=== PATIENT | female | born 1970 | race African-American/Black ===

== ENCOUNTER 2019-11-28 17:25 | Emergency (ER) | payer MEDICAID ==
[~2019-11-28] VITALS: Ht 162.6 cm; Wt 73.0 kg
--- NOTE | 2019-11-28 17:45 | NUR ---
ED Nurse Note: Pt ambulated to ED from home due to L ankle pain started since yesterday. Pt reports that she fell down the stairs (2 steps) and twisted her left ankle. Pt is AOx4, calm and cooperative to care, VSS, on RA, afebrile on triage.
--- NOTE | 2019-11-28 18:12 | Diagnostic Imaging Report ---
EXAM: XR Left Ankle Complete, 3 or More Views CLINICAL HISTORY: TRAUMA TECHNIQUE: Frontal, lateral and oblique views of the left ankle. COMPARISON: No relevant prior studies available. FINDINGS: Bones/joints: No acute osseous abnormality. No dislocation. Soft tissues: Lateral ankle soft tissue swelling. IMPRESSION: 1. Lateral ankle soft tissue swelling. 2. No acute osseous abnormality. 3. Otherwise unremarkable study.
[2019-11-28] MEDS ORDERED: IBUPROFEN600 M1 ORAL (19:33)
[2019-11-28] MEDS ORDERED: ROBAXIN-500MG ORAL (19:33)
--- NOTE | 2019-11-28 19:33 | Emergency Room Report ---
History of Present Illness General Chief Complaint: Lower Extremity Injury Source: Patient Present Illness HPI 49-year-old female with no significant past medical history here complaining of left calf pain after twisting. Going down the stairs yesterday. Denies any head injury loss of consciousness. Is ambulating to ED with a cane. Rates the pain in ankle 7 out of 10 with radiation to left calf and reports that "something popped.". Denies any tingling or numbness. Neurovascularly intact. Has full range of motion with pain elicited upon flexion and extension. Has taken Advil for pain relief. Denies chest pain, shortness of breath, headache or dizziness. Denies any other injuries. Allergies: Coded Allergies: PENICILLINS (Verified Allergy, Unknown, 11/28/19) COVID-19 Screening Contact w/high risk pt: No Experienced COVID-19 symptoms?: No COVID-19 Testing performed [employer]OR: Yes COVID-19 Screening: Negative COVID-19 COVID-19 Testing Source: [facility] 3 months ago. Patient History Past Medical History: see triage record Past Surgical History: none Pertinent Family History: none Now: No Immunizations: UTD Reviewed Nursing Documentation: PMH: Agreed; PSxH: Agreed Nursing Documentation-PMH Past Medical History: No Stated History Review of Systems All Other Systems: negative except mentioned in HPI Physical Exam Vital Signs Date Time Temp Pulse Resp B/P (MAP) Pulse Ox O2 Delivery O2 Flow Rate FiO2 11/28/19 17:32 98.4 78 16 117/66 (83) 97 Room Air Sp02 EP Interpretation: reviewed, normal General Appearance: no apparent distress, alert, GCS 15, non-toxic Head: normocephalic, atraumatic Eyes: bilateral eye normal inspection, bilateral eye PERRL ENT: hearing grossly normal, normal pharynx, no angioedema, normal voice Neck: full range of motion, supple, no meningismus, no bony tend, supple/symm/no masses Respiratory: chest non-tender, lungs clear, normal breath sounds, no rhonchi, no respiratory distress, no retraction, no accessory muscle use, no wheezing, speaking full sentences Cardiovascular #1: regular rate, rhythm, no edema, no murmur Cardiovascular #2: 2+ dorsalis pedis (R), 2+ dorsalis pedis (L) Gastrointestinal: normal bowel sounds, non tender, soft, non-distended, no guarding, no rebound Rectal: deferred Genitourinary: no CVA tenderness Musculoskeletal: back normal, no calf tenderness, pelvis stable, Fiordaliza's Sign negative, non-tender, swelling - Left lateral malleolus, other - Is neurovascularly intact Neurologic: alert, motor strength/tone normal, oriented x3, sensory intact, responsive, speech normal Psychiatric: judgement/insight normal, memory normal, mood/affect normal, no suicidal/homicidal ideation Reflexes: 2+ ankle (R), 2+ ankle (L) Skin: no rash Lymphatic: no adenopathy Procedures Splinting Splinting : Consent: Verbal Location: Left ankle Pre-Made Type: DANK wrap Pre-Proc Neuro Vasc Exam: normal Post-Proc Neuro Vasc Exam: normal Patient Tolerated: Well Complications: None Medical Decision Making PA Attestation ALL Diagnosis and treatment plan reviewed and discussed with my supervising physician Dr. Batres Diagnostic Impression: Primary Impression: Ankle sprain ER Course 49-year-old female with no significant past medical history here complaining of left calf pain after twisting. Going down the stairs yesterday. Denies any head injury loss of consciousness. Is ambulating to ED with a cane. Rates the pain in ankle 7 out of 10 with radiation to left calf and reports that "something popped.". Denies any tingling or numbness. Neurovascularly intact. Has full range of motion with pain elicited upon flexion and extension. Has taken Advil for pain relief. Denies chest pain, shortness of breath, headache or dizziness. Denies any other injuries. Ddx considered but are not limited to: ankle sprain, ankle strain, ankle fracture, ankle contusion Vital signs: are WNL, pt. is afebrile H&PE are most consistent with: Left ankle sprain ORDERS: ankle x-ray, venous duplex ultrasound left lower extremity, Robaxin, Motrin ED INTERVENTIONS: Dank wrap, Toradol IM, Robaxin p.o. DISCHARGE: At this time pt. is stable for d/c to home. Will provide printed patient care instructions, and any necessary prescriptions. Care plan and follow up instructions have been discussed with the patient prior to discharge. Take medication as directed, follow-up with spine specialist, if worsening symptoms return to the emergency room Other X-Ray Diagnostic Results Other X-Ray Diagnostic Results : X-Ray ordered: Left ankle # of Views/Limited Vs Complete: 3 View Indication: Pain EP Interpretation: Yes PA Xray: Interpretation reviewed, by supervising MD, and agrees with findings. Interpretation: no dislocation, no fractures Impression: No acute disease Electronically Signed by: Ashley ESQUEDA Scrmaurizio Text FINDINGS: Bones/joints: No acute osseous abnormality. No dislocation. Soft tissues: Lateral ankle soft tissue swelling. IMPRESSION: 1. Lateral ankle soft tissue swelling. 2. No acute osseous abnormality. 3. Otherwise unremarkable study. CT/MRI/US Diagnostic Results CT/MRI/US Diagnostic Results : Imaging Test Ordered: Left venous duplex ultrasound Impression COMPARISON: No relevant prior studies available. FINDINGS: Right deep veins: Unremarkable. No DVT in the right common femoral, femoral, proximal deep femoral or popliteal veins. The veins demonstrate normal color flow, are normally compressible, with normal phasic flow and/or augmentation response. Right superficial veins: Unremarkable. No thrombus in the visualized right great saphenous vein. Left deep veins: Unremarkable. No DVT in the left common femoral, femoral, proximal deep femoral or popliteal veins. The veins demonstrate normal color flow, are normally compressible, with normal phasic flow and/or augmentation res ponse. Left superficial veins: Unremarkable. No thrombus in the visualized left great saphenous vein. Soft tissues: No acute findings. No popliteal cyst. IMPRESSION: No DVT. Last Vital Signs Date Time Temp Pulse Resp B/P (MAP) Pulse Ox O2 Delivery O2 Flow Rate FiO2 11/28/19 17:32 98.4 78 16 117/66 (83) 97 Room Air Disposition: HOME, SELF-CARE Condition: Stable Scripts Ibuprofen* (MOTRIN*) 600 Mg Tablet 600 MG ORAL Q6H PRN for For Pain, #30 TAB 0 Refills Prov: Ashley Boykin 11/28/19 Methocarbamol* (ROBAXIN-500*) 500 Mg Tablet 500 MG ORAL TID PRN for For Pain, #15 TAB 0 Refills Prov: Ashley Boykin 11/28/19 Referrals: [facility] (PCP) Patient Instructions: Ankle Sprain Additional Instructions: Take medication as directed, follow with primary care provider and spine specialist, if worsening symptoms return to the emergency room Ashley Boykin Nov 28, 2019 19:33
[2019-11-28] MEDS ORDERED: Ketorolac 30mg Inj IM ONE (19:45)
[2019-11-28] MEDS ORDERED: Methocarbamol 750mg tab ORAL ONE (19:45)
--- NOTE | 2019-11-28 19:46 | Diagnostic Imaging Report ---
EXAM: US Duplex Bilateral Lower Extremities Veins CLINICAL HISTORY: DVT TECHNIQUE: Real-time duplex ultrasound scan of the bilateral lower extremity veins integrating B-mode two-dimensional vascular structure, Doppler spectral analysis, color flow Doppler imaging and compression. COMPARISON: No relevant prior studies available. FINDINGS: Right deep veins: Unremarkable. No DVT in the right common femoral, femoral, proximal deep femoral or popliteal veins. The veins demonstrate normal color flow, are normally compressible, with normal phasic flow and/or augmentation response. Right superficial veins: Unremarkable. No thrombus in the visualized right great saphenous vein. Left deep veins: Unremarkable. No DVT in the left common femoral, femoral, proximal deep femoral or popliteal veins. The veins demonstrate normal color flow, are normally compressible, with normal phasic flow and/or augmentation response. Left superficial veins: Unremarkable. No thrombus in the visualized left great saphenous vein. Soft tissues: No acute findings. No popliteal cyst. IMPRESSION: No DVT.
--- NOTE | 2019-11-28 19:48 | NUR ---
ER DISCHARGE NOTE: Patient is cleared to be discharged per ERMD, pt is aox4, on room air, with stable vital signs. pt was given dc and prescription instructions, pt was able to verbalize understanding, pt id band removed without complications. pt is able to ambulate with steady gait using cane. pt's ankle was DHRUV bandaged per PA instruction. pt took all belongings.
[2019-11-28 19:49] VITALS: BP 117/66
== END 2019-11-28 19:50 | disposition home or self-care (01) ==
LOC: EMR 18:09
DX: S93.402A Sprain of unspecified ligament of left ankle, initial encounter (principal); X50.1XXA Overexertion from prolonged static or awkward postures, initial encounter; Y92.9 Unspecified place or not applicable; Z88.0 Allergy status to penicillin
CPT/HCPCS: 73610; 93971; 96372; J1885; Z7502; 99284